=== PATIENT | male | born 1945 | race Caucasian/White ===

== ENCOUNTER 2019-10-30 13:36 | Outpatient (CLI) | payer MEDICARE, OTHER, SELFPAY ==
[2019-10-30 14:06] LABS: Add Urine Microscopic? NO
[2019-10-30 14:12] LABS: Bilirubin Urine Neg (NEGATIVE); Blood Urine Neg (Negative); Glucose Urine UA Norm (Normal); Ketones Urine Negative (Negative); Leukocyte Esterase Urine Negative (Negative); Nitrate Urine Negative (Negative); Protein Urine Neg (Negative); Specific Gravity, Urine 1.015 (1.005-1.030); Urine Appearance Clear (CLEAR); Urine Color Yellow (Yellow); Urobilinogen Urine Neg (Negative); pH Urine 5 (5-7)
[2019-10-30 14:13] LABS: Basophils # 0.1 10^3/uL (0.0-0.1); Basophils % 0.6 %; Eosinophils # 0.1 10^3/uL (0.0-0.8); Eosinophils % 1.1 %; Hematocrit 50.5 % (42.0-52.0); Hemoglobin 15.9 g/dL (11.7-16.6); Lymphocytes # 3.6 10^3/uL (0.8-4.8); Lymphocytes % 28.6 %; Mean Corpuscular HGB Conc 31.5 g/dL (30.0-36.0); Mean Corpuscular Hemoglobin 27.6 pg (28.0-34.0); Mean Corpuscular Volume 87.7 fL (80-94); Mean Platelet Volume 10.1 fL (7.4-10.4); Monocytes # 0.6 10^3/uL (0.2-0.9); Neutrophils # 7.9 10^3/uL (1.8-7.7); Neutrophils % 62.6 %; Nucleated Red Blood Cells % 0 %; Platelet Count 319 10^3/cmm (130-400); Red Blood Count 5.76 10^6/uL (4.1-5.3); Red Cell Distribution Width 13.9 % (12.1-15.1); White Blood Count 12.6 10^3/uL (4.0-10.0)
[2019-10-30 14:29] LABS: Alanine Aminotransferase 28 U/L (0-41); Albumin Level 3.9 g/dL (3.5-5.2); Alkaline Phosphatase 80 IU/L (40-130); Anion Gap 16.2 (5-19); Aspartate Amino Transferase 23 U/L (0-40); Blood Urea Nitrogen 14 mg/dL (8-23); Calcium 9.6 mg/dL (8.5-10.5); Carbon Dioxide 28 mmol/L (22-29); Chloride 97 mmol/L (98-107); Globulin 3.2 g/dL (1.3-4.6); Glucose 154 mg/dL (65-115); Osmolality Calculated 283 mOsm/kg (285-295); Potassium 4.2 mmol/L (3.5-5.1); Sodium 137 mmol/L (136-145); Total Bilirubin 0.7 mg/dL (0.15-1.2); Total Protein 7.1 g/dL (6.6-8.7)
[2019-10-30 15:32] LABS: Estmated Average Glucose 154
== END 2019-10-30 13:37 | disposition home or self-care (01) ==
LOC: LAB 13:39
PROVIDERS: PCP Nurse Practitioner; Visit Provider Nurse Practitioner
DX: E11.65 Type 2 diabetes mellitus with hyperglycemia (principal); I10 Essential (primary) hypertension
CPT/HCPCS: 80053; 81003; 83036; 85025

== ENCOUNTER → 2019-11-03 08:02 | Outpatient (BNVA) | payer MEDICARE, OTHER, SELFPAY | PROVIDERS: PCP Nurse Practitioner; Visit Provider Nurse Practitioner | DX: D72.829 Elevated white blood cell count, unspecified (principal) | CPT/HCPCS: 71046 ==

== ENCOUNTER → 2019-11-29 11:35 | Outpatient (BNVA) | payer OTHER, MEDICARE, SELFPAY | PROVIDERS: PCP Nurse Practitioner; Referring Provider Nurse Practitioner; Visit Provider Internal Medicine Cardiovascular Disease | DX: I50.33 Acute on chronic diastolic (congestive) heart failure (principal); R06.02 Shortness of breath; I35.0 Nonrheumatic aortic (valve) stenosis; I10 Essential (primary) hypertension; R07.89 Other chest pain; E11.65 Type 2 diabetes mellitus with hyperglycemia; E78.5 Hyperlipidemia, unspecified | CPT/HCPCS: 80048; 83880 ==

== ENCOUNTER 2019-12-06 12:59 | Outpatient (CLI) | payer OTHER, MEDICARE, SELFPAY ==
--- NOTE | 2019-12-06 13:30 | USCV_ITS ---
Dipak Falcon Age: 74 Gender: M : 1945 Exam Date: 12/06/2019 13:24 Ordering Phys: Catrachita Mackey MD ([email or web address]) Technologist: Leola Colón Exam Location: [facility] [place] Indication: CHF BP: 156 / 88 HR: 69 Rhythm: Sinus Technical Quality: Adequate MEASUREMENTS (Male / Female) Normal Values 2D ECHO LV Diastolic Diameter PLAX 3.1 cm 4.2 - 5.9 / 3.9 - 5.3 cm LV Systolic Diameter PLAX 2.1 cm LV Chamber Size 3.8 cm IVS Diastolic Thickness 1.7 cm 0.6 - 1.0 / 0.6 - 0.9 cm IVS Systolic Thickness 1.7 cm LVPW Diastolic Thickness 2.0 cm 0.6 - 1.0 / 0.6 - 0.9 cm LVPW Systolic Thickness 2.2 cm RV Chamber Size 2.4 cm LVOT Diameter 2.0 cm LV Ejection Fraction 2D Teich 60.0 % LV Ejection Fraction MOD 2C 76.9 % LV Ejection Fraction 2C AL 78.6 % LA Diameter 4.0 cm LA Width 3.0 cm LA Height 3.5 cm RA Width 2.3 cm RA Height 2.9 cm Aorta at Sinotubular Diameter 2.5 cm M-MODE LV Diastolic Diameter MM 3.4 cm 4.2 - 5.9 / 3.9 - 5.3 cm LV Systolic Diameter MM 2.4 cm LV Ejection Fraction MM Teich 56.9 % IVS Diastolic Thickness MM 1.0 cm 0.6 - 1.0 / 0.6 - 0.9 cm IVS Systolic Thickness MM 1.1 cm LVPW Diastolic Thickness MM 1.0 cm 0.6 - 1.0 / 0.6 - 0.9 cm LVPW Systolic Thickness MM 1.2 cm Aortic Annulus Diameter 2.9 cm LA Ao Ratio MM 1.4 MV E Point Septal Separation 0.8 cm DOPPLER AV Peak Velocity 102.0 cm/s LVOT Peak Velocity 105.0 cm/s AV Area Cont Eq vti 2.0 cm squared AV Area Cont Eq pk 3.4 cm squared MV Area PHT 13.8 cm squared Mitral E to A Ratio 0.8 MV E' Velocity 8.0 cm/s Mitral E to MV E' Ratio 9.2 Mitral E to LV E' Lateral Ratio 10.8 Mitral E to LV E' Septal Ratio 8.1 TR Peak Velocity 168.0 cm/s TR Peak Gradient 11.3 mmHg TV Peak E Velocity 82.0 cm/s Right Atrial Pressure 3.0 mmHg Pulmonary Artery Systolic Pressu 14.3 mmHg PV Peak Velocity 89.0 cm/s RV Acceleration Time 0.1 s RV Ejection Time 0.3 s RV AcT/ET 0.5 FINDINGS Left Ventricle Normal left ventricular size and systolic function, EF 58 %. Mild left ventricular hypertrophy. Grade I/IV diastolic dysfunction (abnormal relaxation filling pattern), normal to mildly elevated filling pressures. Right Ventricle Normal right ventricular size and systolic function. Right Atrium Normal right atrial size. Left Atrium Normal left atrial size. Mitral Valve Thickened mitral valve. Mild-moderate mitral valve regurgitation. Aortic Valve Thickened aortic valve. Tricuspid Valve No gross abnormalities noted Pulmonic Valve Pulmonic valve not well visualized. Pericardium No pericardial effusion. Aorta Normal aortic annulus size. CONCLUSIONS Normal left ventricular size and systolic function, EF 58 %. Mild left ventricular hypertrophy. Grade I/IV diastolic dysfunction (abnormal relaxation filling pattern), normal to mildly elevated filling pressures. Thickened mitral valve. Mild-moderate mitral valve regurgitation. Thickened aortic valve. There is no pericardial effusion. There are no intracardiac masses. Technically difficult study because of the poor ultrasonic window. No previous study is available for comparison. Dr Catrachita Mackey MD [facility] (Electronically Signed) Final Date: 06 December 2019 20:42 S
== END 2019-12-06 13:00 | disposition home or self-care (01) ==
LOC: RAD 13:03
PROVIDERS: PCP Emergency Medicine Emergency Medical Services; Visit Provider Internal Medicine Cardiovascular Disease
DX: I50.9 Heart failure, unspecified (principal); I08.0 Rheumatic disorders of both mitral and aortic valves
CPT/HCPCS: 93306

== ENCOUNTER 2019-12-08 06:41 | Outpatient (CLI) | payer OTHER, MEDICARE, SELFPAY ==
[2019-12-08 07:15] VITALS: BMI 31.4
--- NOTE | 2019-12-08 07:19 | ECG_ITS ---
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 Interpretive Statements NAME OF STUDY: LEXISCAN SESTAMIBI STRESS TEST INDICATION: Shortness of breath; CHF PROCEDURE: At the baseline, the EKG revealed normal sinus rhythm with some nonspecific ST changes. Nonspecific IVCD.. The baseline blood pressure was 139/81 mm Hg with a heart rate of 69 beats/min. Lexiscan was infused over a period of 20 seconds. A total of 0.4 milligrams of Lexiscan was infused. The stress phase was continued for a total of 5 minutes. Heart rate at the end of the stress phase was 90 with a blood pressure 156/85. The EKG at the peak infusion revealed no significant changes. Sestamibi was injected 20 seconds after the Lexiscan infusion. Blood pressure at the end of the recovery phase was 154/81 with a heart rate of 84 per minute. CONCLUSION: 1. No significant EKG changes with the LexiScan infusion 2. No LexiScan induced chest pain or cardiac arrhythmia 3. Normal blood pressure and heart rate response 4. Sestamibi/sestamibi perfusion scan pending; see separate report. Electronically Signed On 12-09-2019 12:45:12 CDT by Catrachita Mackey M.D. [email or web address]
--- NOTE | 2019-12-08 07:19 | NMCV_ITS ---
NM lani perf SPECT r/s* [id number] Dipak Falcon Age: 74 Gender: M : 1945 Exam Date: 12/08/2019 07:53 Ordering Phys: Catrachita Mackey MD ([email or web address]) Technologist: BRENNEN Jain Exam Location: [facility] Indications: CHF STRESS TEST Please see separate stress test report in [facility] for full findings IMAGE PROTOCOL Rest/Stress 1 Lexiscan Day Radiopharmaceutical Dose (mCi) Administration Site Administered by Rest: Tc-99m 10.7 IV BRENNEN Short Sestamibi Stress:Tc-99m 32.7 IV BRENNEN Jain Sestamidonny Rest: 08-Dec-2019 60 Discovery 630 Stress: 08-Dec-2019 30 Discovery 630 0.4mg Lexiscan. Images obtained in supine and prone position. SPECT RESULTS Technical Quality: Excellent Raw Data Analysis: Normal Image Corrections: No attenuation or motion correction applied Summed Stress Score: 3 Summed Rest Score: 6 Summed Difference Score: 0 PERFUSION FINDINGS Patchy areas of slightly decreased tracer uptake in the inferior wall regions, with no significant reversibility FUNCTIONAL RESULTS (calculated via Gated SPECT) Stress Image LV EF (%): 63 Stress EDV (mL):78 TID: 1.12 Stress ESV (mL):29 FUNCTIONAL FINDINGS: Segmental wall motion analysis revealing no gross wall motion normalities IMPRESSIONS 1. Myocardial perfusion may revealing patchy areas of persistent decreased tracer uptake in the inferior wall regions, most likely represent attenuation artifact. 2. Normal LV ejection fraction of 63%. 3. LV wall motion analysis revealing no gross wall motion normalities. 4. Normal LV volume. No significant coronary ischemia, based on the above findings Dr Catrachita Mackey MD FAC (Electronically Signed) Final Date: 08 December 2019 17:58 S
[2019-12-08] MEDS: regadenoson 0.4 Mg/5 ml Syringe IVP (08:57)
--- NOTE | 2019-12-08 08:57 | SUR.PREOP ---
Patient reports no pain or discomfort prior to the start of the procedure.
[2019-12-08 09:11] VITALS: BP 154/81; PULSE 84
== END 2019-12-08 06:42 | disposition home or self-care (01) ==
PROVIDERS: PCP Emergency Medicine Emergency Medical Services; Visit Provider Internal Medicine Cardiovascular Disease
DX: R06.02 Shortness of breath (principal); I50.9 Heart failure, unspecified
CPT/HCPCS: 78452; 93017; A9500; J2785

== ENCOUNTER 2020-07-23 08:39 | Outpatient (CLI) | payer OTHER, SELFPAY ==
--- NOTE | 2020-07-23 08:50 | USCV_ITS ---
Dipak Falcon Age: 75 Gender: M : 1945 Exam Date: 07/23/2020 09:08 Ordering Phys: Mario Guevara MD Technologist: Nino Kumar Exam Location: [facility] [place] Indication: CAD BP: 152 / 86 HR: 86 Rhythm: Sinus Technical Quality: Adequate MEASUREMENTS (Male / Female) Normal Values 2D ECHO LV Diastolic Diameter PLAX 3.9 cm 4.2 - 5.9 / 3.9 - 5.3 cm LV Systolic Diameter PLAX 2.5 cm IVS Diastolic Thickness 1.6 cm 0.6 - 1.0 / 0.6 - 0.9 cm IVS Systolic Thickness 2.0 cm LVPW Diastolic Thickness 1.7 cm 0.6 - 1.0 / 0.6 - 0.9 cm LVPW Systolic Thickness 2.3 cm LVOT Diameter 2.0 cm LV Ejection Fraction 2D Teich 68.2 % LV Ejection Fraction MOD 2C 67.9 % LV Ejection Fraction 2C AL 66.6 % LA Diameter 3.1 cm LA Width 3.0 cm LA Height 4.8 cm RA Width 3.1 cm RA Height 3.9 cm Aorta at Sinotubular Diameter 2.6 cm M-MODE LV Diastolic Diameter MM 3.6 cm 4.2 - 5.9 / 3.9 - 5.3 cm LV Systolic Diameter MM 2.3 cm LV Ejection Fraction MM Teich 65.7 % IVS Diastolic Thickness MM 1.5 cm 0.6 - 1.0 / 0.6 - 0.9 cm IVS Systolic Thickness MM 1.9 cm LVPW Diastolic Thickness MM 1.7 cm 0.6 - 1.0 / 0.6 - 0.9 cm LVPW Systolic Thickness MM 1.7 cm Aortic Annulus Diameter 3.0 cm LA Ao Ratio MM 1.1 DOPPLER AV Peak Velocity 146.0 cm/s LVOT Peak Velocity 102.0 cm/s AV Area Cont Eq vti 2.4 cm squared AV Area Cont Eq pk 2.2 cm squared MV Area PHT 4.3 cm squared Mitral E to A Ratio 0.6 MV E' Velocity 24.5 cm/s Mitral E to MV E' Ratio 5.9 Mitral E to LV E' Lateral Ratio 7.6 Mitral E to LV E' Septal Ratio 4.8 TR Peak Velocity 110.7 cm/s TR Peak Gradient 4.9 mmHg PV Peak Velocity 70.0 cm/s FINDINGS Left Ventricle Normal left ventricular cavity size. Normal left ventricular systolic function. No regional wall motion abnormalities. Left ventricular ejection fraction is estimated at 65 %. Grade I/IV diastolic dysfunction (abnormal relaxation filling pattern), normal to mildly elevated filling pressures. Right Ventricle The right ventricle is normal in size and function. RVSP could not be calculated due to incomplete tricuspid regurgitation velocity profile. Right Atrium The right atrium is normal in size. Left Atrium The left atrium is normal in size. Mitral Valve Moderately thickened mitral valve. Moderate mitral annular calcification. No mitral valve stenosis. Trace mitral valve regurgitation. Aortic Valve Aortic valve sclerosis without stenosis or regurgitation. Tricuspid Valve Structurally normal tricuspid valve without significant stenosis or regurgitation. Pulmonic Valve Structurally normal pulmonic valve without significant stenosis. There is no pulmonic regurgitation. Pericardium Normal pericardium without effusion. Aorta Normal ascending aorta dimension. CONCLUSIONS 1-Normal left ventricular cavity size. Normal left ventricular systolic function. No regional wall motion abnormalities. Left ventricular ejection fraction is estimated at 65 %. Grade I/IV diastolic dysfunction (abnormal relaxation filling pattern), normal to mildly elevated filling pressures. 2-No significant valve abnormalities. 3-There is no pericardial effusion. 4-Right atrial pressure is around 5 mm of mercury. 5-There are no prior echocardiogram studies to compare. 6-No significant change since the prior echocardiogram study of 12/05/2017. Fahad Salmeron MD (Electronically Signed) Final Date: 23 July 2020 19:24 S
[2020-07-23 10:01] LABS: Add Urine Microscopic? NO
[2020-07-23 10:10] LABS: Bilirubin Urine Neg (Negative); Blood Urine Neg (Negative); Glucose Urine UA Norm (Normal); Ketones Urine Negative (Negative); Leukocyte Esterase Urine Negative (Negative); Nitrate Urine Negative (Negative); Protein Urine Neg (Negative); Specific Gravity, Urine 1.015 (1.005-1.030); Urine Appearance Clear (CLEAR); Urine Color Yellow (Yellow); Urobilinogen Urine Norm (Negative); pH Urine 6.5 (5-7)
[2020-07-23 10:14] LABS: Alanine Aminotransferase 18 U/L (0-41); Albumin Level 4.2 g/dL (3.5-5.2); Alkaline Phosphatase 86 IU/L (40-130); Anion Gap 13.3 (5-19); Aspartate Amino Transferase 17 U/L (0-40); Blood Urea Nitrogen 19 mg/dL (8-23); Calcium 9.1 mg/dL (8.5-10.5); Carbon Dioxide 27 mmol/L (22-29); Chloride 99 mmol/L (98-107); Globulin 3.2 g/dL (1.3-4.6); Glucose 153 mg/dL (65-115); Osmolality Calculated 285 mOsm/kg (285-295); Potassium 4.3 mmol/L (3.5-5.1); Sodium 135 mmol/L (136-145); Total Bilirubin 0.8 mg/dL (0.15-1.2); Total Protein 7.4 g/dL (6.6-8.7)
== END 2020-07-23 08:40 | disposition home or self-care (01) ==
LOC: US 08:40
PROVIDERS: PCP Emergency Medicine Emergency Medical Services; Visit Provider Orthopaedic Surgery
DX: I25.10 Atherosclerotic heart disease of native coronary artery without angina pectoris (principal); E11.9 Type 2 diabetes mellitus without complications
CPT/HCPCS: 36415; 80053; 81003; 93306

== ENCOUNTER → 2020-09-02 08:51 | Outpatient (BNVA) | payer OTHER, SELFPAY | PROVIDERS: PCP Nurse Practitioner; Visit Provider Internal Medicine Cardiovascular Disease | DX: R06.02 Shortness of breath (principal); Z20.822 Contact with and (suspected) exposure to COVID-19 | CPT/HCPCS: 87635 ==

== ENCOUNTER 2020-09-09 07:06 | Outpatient (CLI) | payer OTHER, MEDICARE, SELFPAY ==
--- NOTE | 2020-09-09 09:51 | PFTS_ITS ---
Date of Study:09/09/20 Date of Dictation: MECHANICS: Forced vital capacity (FVC) is reduced. Forced expiratory volume in one second (FEV1) is reduced. FEV1/FVC is normal. FLOW VOLUME LOOP: Reduced flow at all lung volumes. LUNG VOLUMES: Total lung capacity (TLC) is normal. Residual volume (RV) is increased. DIFFUSING CAPACITY FOR CARBON MONOXIDE: Normal. INTERPRETATION: The prebronchodilator spirometry is consistent with moderate obstruction. The postbronchodilator spirometry is consistent with moderate restriction. There is a significant postbronchodilator response. The lung volumes are consistent with air trapping. The constellation of the findings could be seen in patients with reversible airflow obstruction such as asthma. Gas exchange (DLCO) is normal. MTDD
== END 2020-09-09 07:07 | disposition home or self-care (01) ==
LOC: RT 07:12
PROVIDERS: PCP Emergency Medicine Emergency Medical Services; Visit Provider Internal Medicine Cardiovascular Disease
DX: R06.02 Shortness of breath (principal)
CPT/HCPCS: 94060; 94726; 94729; J7611

== ENCOUNTER 2021-02-11 11:17 | Outpatient (CLI) | payer OTHER, MEDICARE, SELFPAY | END 2021-02-11 11:18 | disposition home or self-care (01) | LOC: LAB 11:24 | PROVIDERS: PCP Emergency Medicine Emergency Medical Services; Visit Provider Internal Medicine Cardiovascular Disease | DX: R30.0 Dysuria (principal) | CPT/HCPCS: 81003 ==

== ENCOUNTER 2021-03-05 08:31 | Outpatient (CLI) | payer OTHER, SELFPAY ==
[2021-03-05 08:59] LABS: Basophils # 0.1 10^3/uL (0.0-0.1); Basophils % 0.8 %; Eosinophils # 0.5 10^3/uL (0.0-0.8); Eosinophils % 4.4 %; Hematocrit 51.1 % (42.0-52.0); Hemoglobin 16.6 g/dL (11.7-16.6); Lymphocytes # 2.3 10^3/uL (0.8-4.8); Lymphocytes % 21.9 %; Mean Corpuscular HGB Conc 32.5 g/dL (30.0-36.0); Mean Corpuscular Hemoglobin 28.5 pg (28.0-34.0); Mean Corpuscular Volume 87.7 fl (80-94); Mean Platelet Volume 9.7 fL (7.4-10.4); Monocytes # 0.8 10^3/uL (0.2-0.9); Monocytes % 7.3 %; Neutrophils # 6.72 10^3/uL (1.8-7.7); Neutrophils % 64.4 %; Nucleated Red Blood Cells % 0 %; Platelet Count 232 10^3/cmm (130-400); Red Blood Count 5.83 10^6/uL (4.1-5.3); Red Cell Distribution Width 13.5 % (12.1-15.1); White Blood Count 10.4 10^3/uL (4.0-10.0)
[2021-03-06 17:36] LABS: Alternaria Alternata (M6) Ige <0.10 kU/L; Alternaria Class 0; Bermuda Class 0; Bermuda Grass (G2) Ige <0.10 kU/L; Cat Dander (E1) Ige <0.10 kU/L; Cat Dander Class 0; Common Ragweed (Short) (W1) Ig <0.10 kU/L; D. Farinae Class 1; Dermatophagoides Class 1; Dermatophagoides Farinae (D2) 0.36 kU/L; Dermatophagoides Pteronyssinus 0.38 kU/L; Dog Dander (E5) Ige <0.10 kU/L; Dog Dander Class 0; Elm (T8) Ige <0.10 kU/L; Elm Class 0; English Plantain (W9) Ige <0.10 kU/L; English Plantain Class 0; House Dust (Greer) (H1) Ige <0.10 kU/L; House Dust (Hollister- Stier) <0.10 kU/L; House Dust Class 0; Immunoglobulin E 49 kU/L (<OR=114); Immunoglobulin E 53 kU/L (<OR=114); Johnson Grass (G10) Ige <0.10 kU/L; Johnson Grass Cl 0; June Grass Class 0; June Grass(Kentucky Blue) (G8) <0.10 kU/L; Lamb'S Quarters (Goose Foot) <0.10 kU/L; Lamb'S Quarters Class 0; Maple (Box Elder) (T1) Ige <0.10 kU/L; Maple Class 0; Meadow Fescue (G4) Ige <0.10 kU/L; Meadow Fescue Class 0; Mucor Racemosus Class 0; Oak (T7) Ige <0.10 kU/L; Oak Class 0; Orchard Grass (Cocksfoot) (G3) <0.10 kU/L; Penicillium Class 0; Penicillium Notatum (M1) Ige <0.10 kU/L; Perennial Rye Grass (G5) Ige <0.10 kU/L; Perennial Rye Grass Class 0; Ragweeed Class 0; Rough Marsh Elder (W16) Ige <0.10 kU/L; Rough Marsh Elder Class 0; Sweet Vernal Class 0; Sweet Vernal Grass (G1) Ige <0.10 kU/L; Timothy Grass (G6) Ige <0.10 kU/L; Timothy Grass Class 0
[2021-03-11 16:32] LABS: Aspergillus Fumigatus, Igg Ab, 38.8 mg/L (<=102)
== END 2021-03-05 08:32 | disposition home or self-care (01) ==
LOC: LAB 08:33
PROVIDERS: PCP Emergency Medicine Emergency Medical Services; Visit Provider Internal Medicine Pulmonary Disease
DX: J45.909 Unspecified asthma, uncomplicated (principal); R06.02 Shortness of breath
CPT/HCPCS: 82785; 85025; 86003

== ENCOUNTER → 2021-03-10 08:58 | Outpatient (BNVA) | payer MEDICARE, OTHER, SELFPAY | PROVIDERS: PCP Emergency Medicine Emergency Medical Services; Visit Provider Nurse Practitioner | DX: F41.1 Generalized anxiety disorder (principal); E11.65 Type 2 diabetes mellitus with hyperglycemia | CPT/HCPCS: 80053; 83036 ==

== ENCOUNTER → 2021-09-16 08:44 | Outpatient (BNVA) | payer MEDICARE, OTHER, SELFPAY | PROVIDERS: PCP Emergency Medicine Emergency Medical Services; Visit Provider Nurse Practitioner | DX: E11.65 Type 2 diabetes mellitus with hyperglycemia (principal); E11.40 Type 2 diabetes mellitus with diabetic neuropathy, unspecified; E03.8 Other specified hypothyroidism; F41.1 Generalized anxiety disorder; R39.11 Hesitancy of micturition; I10 Essential (primary) hypertension; M54.2 Cervicalgia; H26.9 Unspecified cataract | CPT/HCPCS: 80053; 80061; 83036; 84443 ==

== ENCOUNTER → 2021-09-30 13:08 | Outpatient (BNVA) | payer MEDICARE, SELFPAY | PROVIDERS: PCP Emergency Medicine Emergency Medical Services; Referring Provider Nurse Practitioner; Visit Provider Physician Assistant | DX: D17.1 Benign lipomatous neoplasm of skin and subcutaneous tissue of trunk (principal); Z98.1 Arthrodesis status | CPT/HCPCS: 72050; 99203 ==

== ENCOUNTER → 2021-10-07 08:55 | Outpatient (BNVA) | payer MEDICARE, SELFPAY | PROVIDERS: PCP Emergency Medicine Emergency Medical Services; Visit Provider Surgery | DX: R22.2 Localized swelling, mass and lump, trunk (principal); R22.1 Localized swelling, mass and lump, neck | CPT/HCPCS: 99212 ==

== ENCOUNTER → 2021-10-08 09:22 | Outpatient (BNVA) | payer MEDICARE, OTHER, SELFPAY | PROVIDERS: PCP Emergency Medicine Emergency Medical Services; Visit Provider Internal Medicine Pulmonary Disease | DX: R06.02 Shortness of breath (principal); J45.909 Unspecified asthma, uncomplicated; G47.33 Obstructive sleep apnea (adult) (pediatric); I50.30 Unspecified diastolic (congestive) heart failure; I10 Essential (primary) hypertension; E03.9 Hypothyroidism, unspecified | CPT/HCPCS: 99214 ==

== ENCOUNTER 2021-11-17 10:13 | Day surgery (SDC) | payer OTHER, SELFPAY ==
[2021-11-14 10:43] VITALS: BMI 31.6
[2021-11-17] VITALS (8 sets, daily range): BP systolic 141–176; BP diastolic 79–99; PULSE 80–98; RESP 13–20; TEMP 36.4–36.6; O2SAT 95–98
[2021-11-17 10:56] LABS: Glucose Point of Care 147 mg/dL (70-110)
[2021-11-17] MEDS: sodium chloride 0.9% 1,000 ML 30 ML IV (10:58)
--- NOTE | 2021-11-17 11:42 | P.HPUD_ITS ---
Surgery/Procedure H&P Update DATE OF PROCEDURE: November 17, 2021 DATE H&P PERFORMED: 10/07/21 CHANGES TO PREVIOUS DOCUMENTATION: none PREOP DIAGNOSIS: subcutaneous mass of back and subcutaneous mass of neck PLANNED PROCEDURE: Operation Date: 11/17/21 12:00 Proposed Procedures p excision fo subq mass of back and subq mass of neck [id number],R22.1,R22.2( Not Applicable) - Truong Baeza DO
--- NOTE | 2021-11-17 11:44 | PM.HP ---
Providers/Chief Complaint Primary Care Provider: Rayo Landin DO Chief Complaint: Subcutaneous mass History of Present Illness Dipak Falcon is a 76 year old male with enlarging subcutaneous masses of his back and neck. He had a lipoma removed in this area in the past, it looks like its come back. No new complaints since last office visit. Review of Systems General: Reports: 10 or more systems reviewed and unremarkable except in HPI and below Medications/Allergies Home Medications Medication Instructions Recorded Confirmed Last Taken Type omeprazole 20 mg capsule,delayed 20 mg PO BID cap 11/29/19 11/17/21 11/16/21 19:00 History release mometasone 100 mcg/actuation HFA 2 puff INHALATION BID #13 g 07/10/21 11/17/21 11/16/21 19:00 Rx aerosol inhaler (Asmanex HFA) furosemide 20 mg tablet (Lasix) 20 mg PO QAM #90 tab 09/02/21 11/17/21 11/16/21 07:00 Rx potassium chloride 10 mEq 10 meq PO DAILY #90 tab 09/02/21 11/17/21 11/16/21 07:00 Rx tablet,extended release atorvastatin 80 mg tablet (Lipitor) 80 mg PO DAILY #90 tab 09/16/21 11/17/21 11/16/21 19:00 Rx gabapentin 300 mg capsule 300 mg PO BID #180 cap 09/16/21 11/17/21 11/16/21 19:00 Rx levothyroxine 75 mcg tablet 75 mcg PO DAILY #90 tab 09/16/21 11/17/21 11/16/21 07:00 Rx nifedipine 30 mg tablet,extended 30 mg PO DAILY #90 tab 09/16/21 11/17/21 11/16/21 07:00 Rx release sertraline 50 mg tablet (Zoloft) 50 mg PO DAILY #90 tab 09/16/21 11/17/21 11/16/21 07:00 Rx tamsulosin 0.4 mg capsule 0.4 mg PO .at bedtime #90 cap 09/16/21 11/17/21 11/16/21 19:00 Rx trazodone 50 mg tablet 50 mg PO DAILY #90 tab 09/16/21 11/17/21 11/16/21 19:00 Rx semaglutide (Ozempic) 0.5 mg (0.4 mL) SUBCUT .weekly 09/18/21 11/17/21 11/16/21 17:00 Rx #1.5 ml aspirin 81 mg tablet,delayed 81 mg PO DAILY 10/08/21 11/17/21 11/14/21 History release (Adult Aspirin Regimen) glipizide 5 mg tablet 2.5 mg PO DAILY 11/14/21 11/17/21 11/16/21 19:00 History cholecalciferol (vitamin D3) 25 25 mcg PO DAILY 11/17/21 11/17/21 11/16/21 07:00 History mcg (1,000 unit) capsule (Vitamin D3) Allergies Allergy/AdvReac Type Severity Reaction Status Date / Time codeine Allergy Unknown passes out Verified 11/17/21 10:32 PFSH Acute PFSH: Medical History Acute on chronic diastolic (congestive) heart failure Adult onset hypothyroidism Atypical chest pain Benign essential HTN Cervical arthritis with myelopathy Congestive heart failure DM neuropathy, painful Dyslipidemia Generalized anxiety disorder Hypertension Type 2 diabetes mellitus with hyperglycemia, without long-term current use of insulin Urinary hesitancy Surgical History History of appendectomy History of cervical spinal surgery History of colonoscopy 2011 History of endoscopy 2005 Family History Son Hypertension Obesity Father CAD (coronary artery disease) Lung disease Family/Other CAD (coronary artery disease) Lung disease Mother Cancer Diabetes Grandmother Cancer Denies family history of Clotting disorder Dementia Chronic kidney disease (CKD) Suicide Anesthesia complication Bleeding disorder Stroke Social History Smoking and tobacco status: never smoked Second hand smoke exposure: No Smoking risk assessment/counseling performed?: No Alcohol intake: never Desire information about alcohol rehabilitation?: No Counseling given: No Desire information about substance/drug rehabilitation?: No Counseling given: No Adopted: No Caregiver/support person: No Lives independently: Yes Household members: spouse Housing: House Marital status: service: Yes branch: [employer] Current occupational status: retired Pets and animals: Yes History of recent travel: No Current gender identity: Male Vitals/I&O/Wt Last Vital Signs Temp 97.8 F 11/17/21 10:32 Pulse 80 11/17/21 10:32 Resp 17 11/17/21 10:32 BP 141/82 11/17/21 10:32 Pulse Ox 98 11/17/21 10:32 Physical Exam Narrative: General : Patient is well developed , no acute distress, oriented x3 Head : Normal cephalic, a-traumatic. Ears : Pinnae and external canal are normal. Hearing is normal. Eyes : PERRLA, Sclera and injection are normal. No conjunctival discharge. Nose : Mucous membranes are without erythema. Throat : buccal mucosa is normal, gums are without significant recession or hypertrophy. Lungs : Equal chest rise bilaterally, no use of accessory muscles, trachea is midline. Cor : Rate and rhythm are normal. Abdomen : Soft, ND, NT, no g/r/m Extremities : No edema, no cyanosis or clubbing, dorsalis pedis pulses are present bilaterally, non-tender to palpation of calves. Upper extremities are normal bilaterally. Back : non-tender to palpation, no CVA tenderness. Neuro : CN II - XII intact, Upper and lower extremities have equal and full strength A&P Assessment and plan (1) Subcutaneous mass of neck: Status: Acute (2) Subcutaneous mass of back: Status: Acute Plan To OR for excision of subcutaneous mass of back and subcutaneous mass of neck. The risks and benefits of procedure, including but not limited to, bleeding, infection, scar, numbness, pain, damage to surrounding structures, recurrence, need for further surgery, or explained the patient.? He is understanding of the risks and wishes to proceed Attestations Medical Necessity Statement*: going home Coding Level of Care Code Acute Transfer Agent for Chg Fwd Diagnoses Subcutaneous mass of neck R22.1 Subcutaneous mass of back R22.2
--- NOTE | 2021-11-17 11:50 | ANES.PREANE2 ---
Pre-Anesthetic Assessment Height/Weight: Height 1.85 m Weight 108.862 kg Temp Pulse Resp BP Pulse Ox 97.8 F 80 17 141/82 98 11/17/21 10:32 11/17/21 10:32 11/17/21 10:32 11/17/21 10:32 11/17/21 10:32 Preop Diagnosis: subcutaneous mass of back and subcutaneous mass of neck Operation Date: 11/17/21 12:00 Proposed Procedures p excision fo subq mass of back and subq mass of neck [id number],R22.1,R22.2(Not Applicable) - Truong Baeza DO Familial anesthetic complications: none Was Beta Samy taken within 24 hours: N/A Was Clonidine taken within 24 hours: N/A Last intake: Intake Last Liquid Date 11/16/21 Last Liquid Time 19:30 Last Solid Date 11/16/21 Last Solid Time 19:30 Social No alcohol and No tobacco Exam alert, oriented x 3, clear to auscultation bilaterally and regular rate & rhythm Airway Submandibular: within normal limits Cervical ROM: Other (Limited ) Pulmonary Asthma, Chronic Obstructive Pulmonary Disease (Related to service in [employer] ) and Sleep Apnea (Uses CPAP at night ) CV/HEM Congestive Heart Failure and Hypertension METS > 4 Stress test 11/2019 CONCLUSION: 1. No significant EKG changes with the LexiScan infusion 2. No LexiScan induced chest pain or cardiac arrhythmia 3. Normal blood pressure and heart rate response 4. Sestamibi/sestamibi perfusion scan pending; see separate report. TTE 07/2020 CONCLUSIONS ?1-Normal left ventricular cavity size. Normal left ventricular ?systolic function. No regional wall motion abnormalities. Left ?ventricular ejection fraction is estimated at 65 %. Grade I/IV ?diastolic dysfunction (abnormal relaxation filling pattern), ?normal to mildly elevated filling pressures. ?2-No significant valve abnormalities. ?3-There is no pericardial effusion. ?4-Right atrial pressure is around 5 mm of mercury. ?5-There are no prior echocardiogram studies to compare. ?6-No significant change since the prior echocardiogram study of ?12/05/2017. None reported Hepatic None reported GI Gastroesophageal Reflux Disease (Poorly controlled GERD ) and Hiatal Hernia Metabolic Diabetes Mellitus and Thyroid Disease Neuropsych Anxiety and Neuropathy Cervical arthritis s/p cervical hardware placement Anesthetic Plan ASA status: 3 Anesthesia: Anesthesia Evaluation and General Other: We discussed risk and benefits of general anesthesia including PONV, sore throat (sometimes severe), corneal abrasion, positioning and peripheral nerve injuries, life threatening allergic reaction, post operative ICU admission requiring prolonged intubation, aspiration, stroke, heart attack, , and rare incidences of recall. Patient consents to proceed with general anesthesia. Risk of > 500 ml blood loss (7ml/kg in children): No Medications/Allergies Home Medications Medication Instructions Recorded Confirmed Last Taken Type omeprazole 20 mg capsule,delayed 20 mg PO BID cap 11/29/19 11/17/21 11/16/21 19:00 History release mometasone 100 mcg/actuation HFA 2 puff INHALATION BID #13 g 07/10/21 11/17/21 11/16/21 19:00 Rx aerosol inhaler (Asmanex HFA) furosemide 20 mg tablet (Lasix) 20 mg PO QAM #90 tab 09/02/21 11/17/21 11/16/21 07:00 Rx potassium chloride 10 mEq 10 meq PO DAILY #90 tab 09/02/21 11/17/21 11/16/21 07:00 Rx tablet,extended release atorvastatin 80 mg tablet (Lipitor) 80 mg PO DAILY #90 tab 09/16/21 11/17/21 11/16/21 19:00 Rx gabapentin 300 mg capsule 300 mg PO BID #180 cap 09/16/21 11/17/21 11/16/21 19:00 Rx levothyroxine 75 mcg tablet 75 mcg PO DAILY #90 tab 09/16/21 11/17/21 11/16/21 07:00 Rx nifedipine 30 mg tablet,extended 30 mg PO DAILY #90 tab 09/16/21 11/17/21 11/16/21 07:00 Rx release sertraline 50 mg tablet (Zoloft) 50 mg PO DAILY #90 tab 09/16/21 11/17/21 11/16/21 07:00 Rx tamsulosin 0.4 mg capsule 0.4 mg PO .at bedtime #90 cap 09/16/21 11/17/21 11/16/21 19:00 Rx trazodone 50 mg tablet 50 mg PO DAILY #90 tab 09/16/21 11/17/21 11/16/21 19:00 Rx semaglutide (Ozempic) 0.5 mg (0.4 mL) SUBCUT .weekly 09/18/21 11/17/21 11/16/21 17:00 Rx #1.5 ml aspirin 81 mg tablet,delayed 81 mg PO DAILY 10/08/21 11/17/21 11/14/21 History release (Adult Aspirin Regimen) glipizide 5 mg tablet 2.5 mg PO DAILY 11/14/21 11/17/21 11/16/21 19:00 History cholecalciferol (vitamin D3) 25 25 mcg PO DAILY 11/17/21 11/17/21 11/16/21 07:00 History mcg (1,000 unit) capsule (Vitamin D3) Allergies Allergy/AdvReac Type Severity Reaction Status Date / Time codeine Allergy Unknown passes out Verified 11/17/21 10:32 Current Medications Generic Name Dose Route Start Last Admin Trade Name Freq PRN Reason Stop Dose Admin Sodium Chloride 1,000 mls @ 30 mls/hr 11/17/21 10:30 11/17/21 10:58 Sodium Chloride 0.9% IV 11/18/21 10:29 30 mls/hr .Q24H LAURI Administration PFSH Anesthesia Medical History Acute on chronic diastolic (congestive) heart failure Adult onset hypothyroidism Atypical chest pain Benign essential HTN Cervical arthritis with myelopathy Congestive heart failure DM neuropathy, painful Dyslipidemia Generalized anxiety disorder Hypertension Type 2 diabetes mellitus with hyperglycemia, without long-term current use of insulin Urinary hesitancy Surgical History History of appendectomy History of cervical spinal surgery History of colonoscopy 2011 History of endoscopy 2005 Family History Son Hypertension Obesity Father CAD (coronary artery disease) Lung disease Family/Other CAD (coronary artery disease) Lung disease Mother Cancer Diabetes Grandmother Cancer Denies family history of Clotting disorder Dementia Chronic kidney disease (CKD) Suicide Anesthesia complication Bleeding disorder Stroke Social History Smoking and tobacco status: never smoked Second hand smoke exposure: No Smoking risk assessment/counseling performed?: No Alcohol intake: never Desire information about alcohol rehabilitation?: No Counseling given: No Desire information about substance/drug rehabilitation?: No Counseling given: No Adopted: No Caregiver/support person: No Lives independently: Yes Household members: spouse Housing: House Marital status: service: Yes branch: [employer] Current occupational status: retired Pets and animals: Yes History of recent travel: No Current gender identity: Male Data Anesthesia Cardiac Studies: Echocardiogram Ultrasound 07/23/20 Sestamibi Stress Test (Cardiology) 12/08/19
[2021-11-17] MEDS: ceFAZolin 2,000 MG in sodium chloride 0.9% (plus) 50 ML 100 MG IV (12:35)
--- NOTE | 2021-11-17 13:26 | PM.OP ---
Operative Report Date of procedure: November 17, 2021 Pre-op diagnosis: Preop Diagnosis subcutaneous mass of back and subcutaneous mass of neck Post-op diagnosis: other (Subcutaneous mass of neck. No mass present in back) Procedure done: Excision of subcutaneous mass of posterior neck Exploration of previous lipoma site of back Specimens removed/disposition: Subcutaneous mass of posterior neck Surgeon: Dr. 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 Excision was indicated. The risks and benefits were explained and documented. Procedure: Patient was brought to the operating room and placed on the OR table in the right lateral decubitus position. A timeout was performed. The posterior neck and back were inspected prepped and draped in the usual sterile fashion. 2% lidocaine with epinephrine was used to anesthetize the area of concern over the posterior neck and upper back. #10 blade scalpel was used to make a 5 cm transverse incision over the area of concern on the posterior neck. Dissection was carried down with Bovie cautery to a firm lobular yellow mass. The mass measured 4 cm in greatest diameter. This was removed entirely. The dermis was approximated with 3-0 Vicryl in an interrupted fashion. The skin was closed with 3-0 nylon in a running fashion. Next attention was brought to the area of concern of the upper back. It was difficult to discern a mass in this area but there was certainly was accessed tissue. A 10 blade scalpel was used to make a 4 cm transverse incision over the area of concern, which was marked by the patient. Dissection was carried down with Bovie cautery. The dermis and subcutaneous tissue in this area was very thick and dense. There was no underlying mass, however. Dermis was approximated using 3-0 Vicryl in an interrupted fashion. Skin was closed using 3-0 nylon in a running fashion. Skin was washed and dried. Sterile dressings were applied. Patient tolerated the procedure well.
--- NOTE | 2021-11-17 13:54 | SUR.PHASEI ---
1345 PT TO PACU 5 PT AWAKES TO VOICE, DENIES PAIN AND NAUSEA, PT ID BRACELET TO LT WRIST PT ID'D WITH 2 IDENTIFERS IV TO RT WRIST #[id number] WITH NS 200ML UP AT KVO RATE PER GRAVITY, BILAT SCDS ON AND WORKING MONITOR ST TO SR NO ECTOPY NOTED , PT WITH GOOD RESP EFFORT NOTED, SATS GOOD. 1357 PT MORE ALERT TAKING OCC ICE CHIPS , PT ON RA TRIAL. PT DENIES PAIN VSS DRESSING X 2 TO POSTERIOR NECK D/I.
--- NOTE | 2021-11-17 14:02 | SUR.PHASEI ---
PT ALERT DENIES PAIN AND NAUSEA, MONITIR REMAINS SR WITH NO ECTOPY,SATS 95% ON RA. PT TALKING WITH DR PIERRE.
[2021-11-17] MEDS: HYDROcodone-acetaminophen 5-325 mg Tablet 1 TAB PO (14:36)
--- NOTE | 2021-11-17 15:16 | ANE.PACU2 ---
Inpatient post-anesthesia follow up: Airway intact: Yes Vital signs: Temperature 97.7 F Pulse Rate 92 Respiratory Rate 18 Blood Pressure 155/79 Pulse Oximetry 98 Oxygen Delivery Me thod Room Air Oxygen Flow Rate 8 Fraction of Inspir ed Oxygen Hydration adequate: Yes Nausea and vomiting: No Pain level: 1 Mental status: Baseline
== END 2021-11-17 14:50 | disposition home or self-care (01) ==
PROVIDERS: PCP Emergency Medicine Emergency Medical Services; Visit Provider Surgery
PROC: (CPT 11424; principal; 2021-11-17 12:00)
DX: D17.0 Benign lipomatous neoplasm of skin and subcutaneous tissue of head, face and neck (principal); R22.2 Localized swelling, mass and lump, trunk; J44.9 Chronic obstructive pulmonary disease, unspecified; G47.30 Sleep apnea, unspecified; I11.0 Hypertensive heart disease with heart failure; I50.9 Heart failure, unspecified; K21.9 Gastro-esophageal reflux disease without esophagitis; E11.40 Type 2 diabetes mellitus with diabetic neuropathy, unspecified; F41.9 Anxiety disorder, unspecified; Z79.82 Long term (current) use of aspirin; E78.5 Hyperlipidemia, unspecified; E11.65 Type 2 diabetes mellitus with hyperglycemia; E03.9 Hypothyroidism, unspecified
CPT/HCPCS: 11424; 12042; 17999; 36416; 82962; 88307; J0330; J2405; J2704; J3010; J3490; J7030

== ENCOUNTER → 2021-11-27 14:09 | Outpatient (BNVA) | payer OTHER, SELFPAY | PROVIDERS: PCP Nurse Practitioner; Visit Provider Surgery | DX: Z48.89 Encounter for other specified surgical aftercare (principal); K21.9 Gastro-esophageal reflux disease without esophagitis | CPT/HCPCS: 99213 ==

== ENCOUNTER → 2021-12-23 08:40 | Outpatient (BNVA) | payer MEDICARE, OTHER, SELFPAY | PROVIDERS: PCP Nurse Practitioner; Visit Provider Nurse Practitioner | DX: E11.65 Type 2 diabetes mellitus with hyperglycemia (principal); E11.40 Type 2 diabetes mellitus with diabetic neuropathy, unspecified; E03.8 Other specified hypothyroidism; I10 Essential (primary) hypertension; F41.1 Generalized anxiety disorder; R39.11 Hesitancy of micturition | CPT/HCPCS: 80053; 80061; 83036; 84443 ==

== ENCOUNTER → 2022-03-03 11:35 | Outpatient (BNVA) | payer OTHER, SELFPAY | PROVIDERS: PCP Nurse Practitioner; Visit Provider Internal Medicine Cardiovascular Disease | DX: I11.0 Hypertensive heart disease with heart failure (principal); E11.65 Type 2 diabetes mellitus with hyperglycemia; R06.02 Shortness of breath; R60.9 Edema, unspecified; I50.33 Acute on chronic diastolic (congestive) heart failure; E78.5 Hyperlipidemia, unspecified; G47.33 Obstructive sleep apnea (adult) (pediatric); I10 Essential (primary) hypertension | CPT/HCPCS: 36415; 80048; 83880; 99214 ==

== ENCOUNTER → 2022-08-13 15:10 | Outpatient (BNVA) | payer MEDICARE, SELFPAY | PROVIDERS: PCP Nurse Practitioner; Visit Provider Nurse Practitioner | DX: E11.65 Type 2 diabetes mellitus with hyperglycemia (principal); R60.9 Edema, unspecified; E11.40 Type 2 diabetes mellitus with diabetic neuropathy, unspecified; E03.8 Other specified hypothyroidism; I10 Essential (primary) hypertension; K21.9 Gastro-esophageal reflux disease without esophagitis; F41.1 Generalized anxiety disorder; R39.11 Hesitancy of micturition | CPT/HCPCS: 80053; 80061; 82043; 83036; 84443 ==

== ENCOUNTER → 2023-02-24 15:17 | Outpatient (BNVA) | payer MEDICARE, OTHER, SELFPAY | PROVIDERS: PCP Nurse Practitioner; Visit Provider Nurse Practitioner | DX: E11.65 Type 2 diabetes mellitus with hyperglycemia (principal); R60.9 Edema, unspecified; E11.40 Type 2 diabetes mellitus with diabetic neuropathy, unspecified; I10 Essential (primary) hypertension; F41.1 Generalized anxiety disorder; R39.11 Hesitancy of micturition; E03.8 Other specified hypothyroidism; E55.9 Vitamin D deficiency, unspecified; K21.9 Gastro-esophageal reflux disease without esophagitis | CPT/HCPCS: 80053; 80061; 82043; 82306; 83036; 84443 ==

== ENCOUNTER → 2023-05-19 13:25 | Outpatient (BNVA) | payer MEDICARE, OTHER, SELFPAY | PROVIDERS: PCP Nurse Practitioner; Visit Provider Nurse Practitioner | DX: E03.8 Other specified hypothyroidism (principal); E11.65 Type 2 diabetes mellitus with hyperglycemia; Z79.899 Other long term (current) drug therapy | CPT/HCPCS: 81000; 83036; 84443; 84481 ==

== ENCOUNTER → 2023-12-16 15:32 | Outpatient (BNVA) | payer MEDICARE, OTHER, SELFPAY | PROVIDERS: PCP Nurse Practitioner; Visit Provider Nurse Practitioner | DX: E11.9 Type 2 diabetes mellitus without complications (principal) | CPT/HCPCS: 80053; 80061; 81000; 83036 ==

== ENCOUNTER → 2024-05-22 14:49 | Outpatient (BNVA) | payer MEDICARE, OTHER, SELFPAY | PROVIDERS: PCP Nurse Practitioner; Visit Provider Nurse Practitioner | DX: E11.9 Type 2 diabetes mellitus without complications (principal) | CPT/HCPCS: 80053; 80061; 81000; 83036; 84443 ==

== ENCOUNTER → 2024-11-28 15:41 | Outpatient (BNVA) | payer MEDICARE, OTHER, SELFPAY | PROVIDERS: PCP Nurse Practitioner; Visit Provider Nurse Practitioner | DX: E11.65 Type 2 diabetes mellitus with hyperglycemia (principal); E55.9 Vitamin D deficiency, unspecified; E03.8 Other specified hypothyroidism; F41.1 Generalized anxiety disorder; R30.0 Dysuria; J98.3 Compensatory emphysema; R14.0 Abdominal distension (gaseous) | CPT/HCPCS: 71046; 80053; 80061; 81003; 82306; 82607; 83036; 84443; 85025; 87086 ==

== ENCOUNTER → 2024-11-30 11:05 | Outpatient (BNVA) | payer MEDICARE, OTHER, SELFPAY | PROVIDERS: PCP Nurse Practitioner; Visit Provider Nurse Practitioner | DX: E11.65 Type 2 diabetes mellitus with hyperglycemia (principal); E03.8 Other specified hypothyroidism; E55.9 Vitamin D deficiency, unspecified | CPT/HCPCS: 85025 ==